=== PATIENT | female | born 1950 | race Caucasian/White ===

== ENCOUNTER 2018-03-11 21:27 | Inpatient (IN) | payer OTHER ==
[~2018-03-11] VITALS: Ht 165.1 cm; Wt 85.3 kg
[~2018-03-11 21:27] MED LIST: ACET325 PO; ELIQUIS5 MG PO; HARVONI 90-4001 EACH PO; INSULANPEN SC; NAPR250 PO; NICO21TP TD; Zithromax250 MG PO
[2018-03-11 21:40] LABS: BASOPHILS ABSOLUTE AUTO 0.12 K/mm3 (0.00-0.23); BASOPHILS PERCENT AUTO 1 % (0-2); EOSINOPHILS ABSOLUTE AUTO 0.31 K/mm3 (0.00-0.68); EOSINOPHILS PERCENT AUTO 2 % (0-6); Hematocrit 49.1 % (33.0-51.0); Hemoglobin 14.5 g/dL (11.5-16.0); IMMATURE GRAN ABSOLUTE AUTO 0.08 K/mm3 (0.00-0.10); IMMATURE GRAN PERCENT AUTO 0 % (0-1); LYMPHOCYTES ABSOLUTE AUTO 10.93 K/mm3 (0.84-5.20); LYMPHOCYTES PERCENT AUTO 57 % (21-46); MONOCYTES PERCENT AUTO 5 % (4-13); Mean Corpuscular HGB 31.7 pg (26.0-34.0); Mean Corpuscular HGB Conc 29.5 g/dL (31.5-36.5); Mean Corpuscular Volume 107 fL (80-100); Mean Platelet Volume 10.9 fL (9.1-12.4); NEUTROPHILS ABSOLUTE AUTO 6.76 K/mm3 (1.96-9.15); NEUTROPHILS PERCENT AUTO 36 % (41-73); Platelet Count 261 K/mm3 (150-400); RDW Coefficient Variation 12.5 % (11.7-14.2); RDW Standard Deviation 49.7 fL (35.1-46.3); Red Blood Cell Count 4.58 M/mm3 (3.80-5.20)
[2018-03-11 21:40] LABS: Calcium, Ionized (POC) 1.19 mmol/L (1.10-1.46); Chloride (POC) 103 mmol/L (98-108); Creatinine (POC) 0.8 mg/dL (0.6-1.0); Glucose (ISTAT POC) 434 mg/dL (70-99); Hemoglobin (POC) 16.3 g/dL (12.0-16.0); Potassium (POC) 3.1 mmol/L (3.5-5.5); Sodium (POC) 142 mmol/L (135-148); Total CO2 (POC) 18 mmol/L (21-32)
[2018-03-11 21:43] LABS: PCO2 Arterial 77.1 mmHg (35-45); PO2 Arterial 164 mmHg (80-100); pH Blood Arterial 6.94 (7.35-7.45)
[2018-03-11 21:57] LABS: International Normalized Ratio 0.97; Prothrombin Time Results 10.3 Sec (9.7-11.5)
[2018-03-11 22:00] LABS: Alanine Aminotransfer (ALT/SGP 24 U/L (12-78); Albumin, Blood 3.1 g/dL (3.4-5.0); Albumin/Globulin Ratio 0.7 (0.8-1.8); Alk Phos 130 U/L (50-136); Anion Gap 21 mmol/L (6-16); Aspartate Aminotrans (AST/SGOT 26 U/L (12-37); Bilirubin, Total 0.3 mg/dL (0.1-1.0); Blood Urea Nitrogen 20 mg/dL (8-24); Bun/Creatinine Ratio 23.8 (12.0-20.0); CO2, Blood 15 mmol/L (21-32); Calcium, Blood 8.9 mg/dL (8.5-10.1); Chloride, Blood 102 mmol/L (98-108); Creatinine, Blood 0.84 mg/dL (0.40-1.00); Ethanol (Alcohol), Blood, Med <3 mg/dL; Globulin, Blood 4.7 g/dL (2.2-4.0); Glomerular Filtration Rate >60 (60-); Glucose, Blood 421 mg/dL (70-99); Potassium, Blood 3.2 mmol/L (3.5-5.5); Sodium, Blood 138 mmol/L (136-145); Total Protein, Blood 7.8 g/dL (6.4-8.2); Troponin I 0.027 ng/mL (0.000-0.040)
[2018-03-11 22:22] LABS: Bilirubin, Urine Neg (Neg); Blood, Urine 2+ (Neg); Glucose Qualitative, Urine 4+ (Neg); Ketones, Urine Neg (Neg); Leukocyte Esterase, Urine Neg (Neg); Nitrite, Urine Neg (Neg); Protein, Urine 3+ (Neg); Specific Gravity, Urine 1.015 (1.003-1.022); Urobilinogen, Urine NORM (Normal)
[2018-03-11 22:25] LABS: Appearance, Urine Clear (Clear); Color, Urine Yellow (P-Yellow)
[2018-03-11 22:31] LABS: Red Blood Cells, Urine Rare /hpf (0-2); Squamous Epithelial Cells Not Seen /hpf (Few); White Blood Cells, Urine Not Seen /hpf (0-5)
[2018-03-11 22:32] LABS: Bacteria Not Seen /hpf
[2018-03-11 22:36] LABS: U Amphetamine Screen Not Detected; U Barbituate Screen Not Detected; U Benzodiazapine Screen Not Detected; U Buprenorphine Screen Not Detected; U Cannabinoids Screen Not Detected; U Cocaine Screen Not Detected; U Methadone Screen Not Detected; U Methamphetamine Screen Not Detected; U Opiates Screen Not Detected; U Oxycodone Screen Not Detected; U Phencyclidine Screen Not Detected; U Propoxyphene Screen Not Detected
[2018-03-12 00:03] LABS: PCO2 Arterial 50.2 mmHg (35-45); PO2 Arterial 74.5 mmHg (80-100); pH Blood Arterial 7.25 (7.35-7.45)
[2018-03-12 04:44] LABS: PCO2 Arterial 38.6 mmHg (35-45); PO2 Arterial 96.3 mmHg (80-100); pH Blood Arterial 7.31 (7.35-7.45)
--- NOTE | 2018-03-12 06:29 | NUR ---
SHIFT NOTE PT ARRIVED TO ICU 1 AT 2345 VIA ER BED, INTUBATED AND VENTED WITH ASSISTANCE OF RT. VENT SETTINGS INITIALLY AC 20, TV 450, PEEP 10, FIO2 80%. PT ABLE TO BE TITRATED DOWNT TO PEEP OF 7 AND FIO2 60% AT THIS TIME. PT HAS BEEN AWAKE, ALERT, ORIENTED, AND ABLE TO FOLLOW COMMANDS APPROPRIATELY. PT SEDATED WITH PROPOFOL AT 30 MCG/KG/MIN. PT COMPLAINED OF PAIN, PT MED WITH FENTANYL WITH GOOD EFFECT. PT THEN BECAME HYPOTENSIVE, DR LUJAN CALLED AND ORDERS RECIEVED FOR FLUID BOLUSES THROUGHOUT THE SHIFT. PT HAS RESPONDED WELL TO FLUIDS. AMIODARONE GTT INFUSING AT 0.5 MG/MIN, HEPARIN GTT INFUSING AT 13 UNIT/KG/HR PER PHARMACY, NS TKO, AND NS AT 200 ML/HR AT THIS TIME. OGT IN PLACE TO LIS WITH BROWN AND BILE COLORED OUTPUT NOTED. PT WITH COPIOUS CLEAR ORAL SECRETIONS. NELSON IN PLACE WITH YELLOW OUTPUT NOTED. SBW RESTRAINTS IN PLACE. PERIPHERAL IV'S X3 C/D/I. PT SPOUSE AND DAUGHTER AT BEDSIDE THROUHGOUT THE NIGHT AND UPDATED TO PLAN OF CARE. VITAL SIGNS STABLE AT THIS TIME WITH HR CONTROLED AND SBP 90-100'S. SEE ORDER HISTORY FOR MORE INFO. WILL CONTINUE TO MONITOR AND REPORT OFF TO ONCOMING RN.
[2018-03-12 06:49] LABS: BASOPHILS ABSOLUTE AUTO 0.03 K/mm3 (0.00-0.23); BASOPHILS PERCENT AUTO 0 % (0-2); EOSINOPHILS PERCENT AUTO 0 % (0-6); Hematocrit 41.1 % (33.0-51.0); Hemoglobin 12.9 g/dL (11.5-16.0); IMMATURE GRAN ABSOLUTE AUTO 0.03 K/mm3 (0.00-0.10); IMMATURE GRAN PERCENT AUTO 0 % (0-1); LYMPHOCYTES ABSOLUTE AUTO 0.63 K/mm3 (0.84-5.20); LYMPHOCYTES PERCENT AUTO 5 % (21-46); MONOCYTES ABSOLUTE AUTO 0.36 K/mm3 (0.16-1.47); MONOCYTES PERCENT AUTO 3 % (4-13); Mean Corpuscular HGB 31.4 pg (26.0-34.0); Mean Corpuscular HGB Conc 31.4 g/dL (31.5-36.5); Mean Platelet Volume 10.4 fL (9.1-12.4); NEUTROPHILS PERCENT AUTO 92 % (41-73); Platelet Count 200 K/mm3 (150-400); RDW Standard Deviation 48.3 fL (35.1-46.3); Red Blood Cell Count 4.11 M/mm3 (3.80-5.20); White Blood Cell Count 13.35 K/mm3 (4.00-11.30)
[2018-03-12 07:05] LABS: Anion Gap 11 mmol/L (6-16); Blood Urea Nitrogen 21 mg/dL (8-24); Bun/Creatinine Ratio 23.9 (12.0-20.0); CO2, Blood 20 mmol/L (21-32); Calcium, Blood 7.6 mg/dL (8.5-10.1); Chloride, Blood 112 mmol/L (98-108); Creatinine, Blood 0.88 mg/dL (0.40-1.00); Glomerular Filtration Rate >60 (60-); Glucose, Blood 351 mg/dL (70-99); Mean Corpuscular Volume 100 fL (80-100); Potassium, Blood 4.7 mmol/L (3.5-5.5); Sodium, Blood 143 mmol/L (136-145)
--- NOTE | 2018-03-12 08:50 | NUR ---
FEMALE PATIENT WITH ORAL ET TO VENT, TV400, PEEP 5, FIO2 SLOWLY DECREASED TO 30% WITH SPO2 AT 94%, AND AC20. SUCTIONED SEVERAL TIMES FROM ET, VERY CLEAR BUT TENACIOUS SECRETIONS. LUNG STILL VERY COARSE T/O. SMALL DARK BROWN DRAINAGE FROM OG AND CLAMPED. GOOD BOWEL SOUNDS AND PASSING LARGE AMTS OF FLATUS. LININ CHANGED AND PATIENT TURNED TO LEFT SIDE FOR ECHO. AMIODERONE DRIP DCED AFTER DR BOONE WENT IN TO EXAMINE PAT. NS AT 200ML/HOUR, PROPOFOL AT 30 MICS/KG/MIN. HEPARIN DRIP ALSO INCREASED TO 15 UNITS/ KGS/HOUR AND A BOLUS OF HEPARIN 3500 UNITS IVP. GOOD URINE O/P.
[2018-03-12 09:22] LABS: Troponin I 4.01 ng/mL (0.000-0.040)
[2018-03-12 10:52] LABS: Source, Urine Catheter
[2018-03-12 11:06] LABS: Bilirubin, Urine Neg (Neg); Blood, Urine 5+ (Neg); Glucose Qualitative, Urine 4+ (Neg); Ketones, Urine Neg (Neg); Leukocyte Esterase, Urine 2+ (Neg); Nitrite, Urine Neg (Neg); Protein, Urine 2+ (Neg); Urobilinogen, Urine NORM (Normal)
[2018-03-12 11:40] LABS: Appearance, Urine Turbid (Clear); Color, Urine Brown (P-Yellow)
[2018-03-12 11:43] LABS: Red Blood Cells, Urine TNTC /hpf (0-2)
[2018-03-12 11:44] LABS: Bacteria Few /hpf; Squamous Epithelial Cells Rare /hpf (Few)
--- NOTE | 2018-03-12 13:19 | NUR ---
Family memebers at bedside. They appeared subdued. Awaiting POC. Non-mandaen. Family responded well to affirmation of obvious love and encouragement. I will remain available.
[2018-03-12] MEDS ORDERED: NICO21TP (14:03)
[2018-03-12] MEDS ORDERED: INSULANPEN SC (14:03)
[2018-03-12] MEDS ORDERED: LOSA50 PO (14:05)
[2018-03-12] MEDS ORDERED: TRESIBA FL100 UNIT/1 SC (14:06)
[2018-03-12] MEDS ORDERED: LOVA40 (14:07)
[2018-03-12] MEDS ORDERED: Novolog100 UNIT/1 SC (14:10)
--- NOTE | 2018-03-12 18:03 | NUR ---
EXTREMELY RESTLESS THIS PM. MORE AWAKE AND TRYING TO SIT UP. MED WITH FENTANYL 50 MICS AND PROPOFOL INCREASED TO 40 MICS/KG/MIN. SUCTIONED NUMEROUS TIMES BUT LUNGS STILL ARE VERY WET AND RONCHOROUS. DR BOONE HERE AND TALKED WITH DAUGHTERS. URINE WAS BLOOD TINGED EARLIER BOT IS NOW DARK. DAUGHTERS STATE SHE PROFOUNDLY CLAUSTROFOBIC.
--- NOTE | 2018-03-12 19:15 | NUR ---
ASSUMING CARE OF PT AT THIS TIME. PT REPORT RECEIVED AT BEDSIDE WITH OFFGOING NURSE, CHERELLE HERNÁNDEZ. PT LAYING IN BED, INTUBATED, SEDATED UPON ENTERING THE ROOM. PT'S FAMILY AT BEDSIDE. VS STABLE - SEE VS FS. PT DOES NOT APPEAR TO BE IN DISTRESS AT THIS TIME. WILL REVIEW PLAN OF CARE.
--- NOTE | 2018-03-12 19:30 | NUR ---
ASSESSMENT PT AGITATED WITH PT CARE, OTHERWISE CALM, COOPERATIVE, RESPONDS TO PAINFUL STIMULI, OPENS EYES TO PRESSURE, LOCALIZES PAIN, DOES NOT FOLLOW COMMANDS, DOES NOT NOD HEAD Y/N TO QUESTIONS. PROPOFOL 40 MCG/KG/MIN - WILL TITRATE TO EFFECT. PLANNING TO DECREASE PROPOFOL AFTER BEDBATH. ANTONIO SENSATION. PT KATZ. SLIGHT WEAKNESS NOTED WITH MOVEMENT. NO S/SX OF PAIN/DISCOMFORT EXCEPT FACIAL GRIMACING AND RESTLESSNESS NOTED WITH PT CARE. LUNGS COARSE T/O, LOWER LOBES DIMINISHED. VENT SETTINGS: AC 12, TV 450, PEEP 5, FIO2 30%. RR 16. OXY SAT >90%. SUCTION VIA ETT: MODERATE AMOUNTS OF THICK RAMOS SECRETIONS. PER DOMINGUEZ, RT - NO SBT WILL BE COMPLETED IN THE AM D/T PLANTING MACHINE CREWMAN PLANNED FOR TOMORROW. AFEBRILE. NSR WITH BBB. HR 90'S. BP STABLE - SEE VS FS. STRONG PULSES. WARM, PINK, DRY SKIN. EDEMA NOTED. HYPO X4 QUADRANTS. ABD MILD DIST, SOFT, NONTENDER. OG IN PLACE. TF: VHP AT GOAL RATE 20 ML/HR AND 30 ML FLUSH Q4 HR. RESIDUAL 6 ML. NPO AT MIDNIGHT FOR SCHEDULED PLANTING MACHINE CREWMAN TOMORROW AM. F/C IN PLACE: CLOUDY, TEA TO BLOODY URINE. PER REPORT FROM BETTY VILLARREAL - DR BLUNT IS AWARE OF URINE. PIV X2. NS TKO X2 ON STABDY. HEPARIN DRIP 15 UNITS/KG/HR AT A DOSING WEIGHT 68 KG (20.4 ML/HR).
[2018-03-12 23:35] LABS: Vancomycin, Trough 12.3 ug/mL (5.0-10.0)
--- NOTE | 2018-03-13 | NUR ---
HEPARIN DRIP APTT AND VANCO TROUGH COMPLETED. INFORMED SIDNEY, PHARMACIST OF APTT AND VANCO TROUGH VALUES. SIDNEY PLANNING TO SEND VANCO TO ICU AND PLANNING TO CHANGE HEPARIN DRIP. WAITING FOR ORDERS AT THIS TIME.
[2018-03-13 03:25] LABS: BASOPHILS ABSOLUTE AUTO 0.05 K/mm3 (0.00-0.23); BASOPHILS PERCENT AUTO 1 % (0-2); EOSINOPHILS ABSOLUTE AUTO 0.02 K/mm3 (0.00-0.68); EOSINOPHILS PERCENT AUTO 0 % (0-6); IMMATURE GRAN ABSOLUTE AUTO 0.01 K/mm3 (0.00-0.10); IMMATURE GRAN PERCENT AUTO 0 % (0-1); LYMPHOCYTES ABSOLUTE AUTO 2.37 K/mm3 (0.84-5.20); LYMPHOCYTES PERCENT AUTO 23 % (21-46); MONOCYTES PERCENT AUTO 4 % (4-13); Mean Corpuscular HGB 31.1 pg (26.0-34.0); Mean Corpuscular HGB Conc 31.4 g/dL (31.5-36.5); Mean Corpuscular Volume 99 fL (80-100); Mean Platelet Volume 10.4 fL (9.1-12.4); NEUTROPHILS ABSOLUTE AUTO 7.49 K/mm3 (1.96-9.15); NEUTROPHILS PERCENT AUTO 72 % (41-73); Platelet Count 148 K/mm3 (150-400); RDW Coefficient Variation 13.2 % (11.7-14.2); Red Blood Cell Count 3.54 M/mm3 (3.80-5.20); White Blood Cell Count 10.34 K/mm3 (4.00-11.30)
[2018-03-13 03:40] LABS: International Normalized Ratio 1.05; Prothrombin Time Results 11.1 Sec (9.7-11.5)
[2018-03-13 03:50] LABS: Anion Gap 7 mmol/L (6-16); Blood Urea Nitrogen 15 mg/dL (8-24); CO2, Blood 24 mmol/L (21-32); Calcium, Blood 7.1 mg/dL (8.5-10.1); Chloride, Blood 113 mmol/L (98-108); Creatinine, Blood 0.84 mg/dL (0.40-1.00); Glomerular Filtration Rate >60 (60-); Glucose, Blood 219 mg/dL (70-99); Magnesium, Blood 2.2 mg/dL (1.6-2.4); Phosphorus, Blood 2.8 mg/dL (2.5-4.9); Potassium, Blood 3.5 mmol/L (3.5-5.5); Sodium, Blood 144 mmol/L (136-145)
[2018-03-13 04:01] LABS: Thyroid Stimulating Hormone 0.049 uIU/mL (0.360-4.800)
--- NOTE | 2018-03-13 04:54 | NUR ---
SHIFT ASSESSMENT NO ACUTE CHANGES NOTED T/O SHIFT. PT AGITATED WITH PT CARE AND DECREASED SEDATION, OTHERWISE CALM, COOPERATIVE, RESOPNDS TO VERBAL STIMULI, OCC OPENS EYES TO VERBAL STIMULI, LOCALIZES PAIN, FOLLOWS COMANDS, NODS HEAD Y/N TO SOME QUESTIONS. PROPOPOFOL CURRENTLY AT 30 MCG/KG/MIN - CONT TO TITRATE TO EFFECT. PT DENIES N/T. SENSATION INTACT. PT KATZ. SLIGHT WEAKNESS NOTED WITH MOVEMENT. OCC S/SX OF PAIN/DISCOMFORT AND PT OCC NODS HEAD Y/ TO PAIN. CONT TO ASSESS FOR PAIN/DISCOMFORT AND MEDICATED WITH PAIN MEDS PER PHYSICIAN'S ORDER / UTILIZED NONPHARM METHODS. LUNGS COARSE T/O, LOWER LOBES DIMINISHED. VENT SETTINGS: AC 12, TV 450, PEEP 5, FIO2 30%. RR 12 TO 20'S. OXY SAT >90%. SUCTION VIA ETT: SMALL TO MODERATE AMOUNTS OF THICK CLEAR TO RAMOS SECRETIONS. PER RT DOMINGUEZ - NO SBT COMPLETED THIS AM D/T SCHEDULED DRYER AND WASHER MECHANIC THIS AM. AFEBRILE. NSR WITH BBB. HR 80'S TO 90'S. BP STABLE - SEE VS FS. STRONG PULSES. WARM, PINK, DRY SKIN. EDEMA NOTED. HYPOACTIVE BT X4 QUADRANTS. ABD MILD DIST, SOFT, NONTENDER. OG IN PLACE. TF ON STANDBY AT 0000 FOR SCHEUDLED DRYER AND WASHER MECHANIC. OG CLAMPLED SINCE 0000. RESIDUAL WNL. F/C IN PLACE: CLOUDY, TEA TO BLOOD URINE. PIV X3. NS TKO X2 ON STANDBY. HEPARIN DRIP 14.5 UNITS/KG/HR AT A DOSING WEIGHT 68 KG (19.7 ML/HR). WILL CONT TO MONITOR PT AND WILL PROVIDE BEDSIDE REPORT TO ONCOMING NURSE THIS AM.
[2018-03-13 05:11] LABS: PCO2 Arterial 38.5 mmHg (35-45); PO2 Arterial 66.3 mmHg (80-100); pH Blood Arterial 7.39 (7.35-7.45)
--- NOTE | 2018-03-13 06:15 | NUR ---
DR. MELY BOONE AT BEDSIDE AT THIS TIME. UPDATED DR. BOONE REGARDING PT'S STATUS. DR. BOONE INSTRUCTED TO CONT TO HOLD TF AT THIS TIME. DR. BOONE ALSO INSTRUCTED TO PAGE HIM ONCE PT'S IS AT BEDSIDE TO OBTAIN CONSENT FOR SCHEDULED PUMP ERECTOR PROCEDURE THIS AM - WILL INFORM ONCOMING NURSE THIS AM.
--- NOTE | 2018-03-13 08:00 | NUR ---
FEMALE PATIENT WITH ORAL ET TO VENT, TV 450, PEEP 5, AC 12, AND FIO2 30%. LUNGS VERY COARSE T/O. SUCTIONING MED AMTS OF PALE YELLOW MUCOUS. DR BOONE HER AND WOULD LIKE TO BE NOTIFIED WHEN PAT'S IS HERE. NUMEROUS BRUISES ON SHALONDA LEGS. ALSO PATIENT REMAINS VERY EDEMATOUS. SHALONDA WRIST RESTRAINTS ON. URINE IN NELSON VERY OLD BLOOD TINGED.
--- NOTE | 2018-03-13 08:30 | NUR ---
PATIENT TAKEN ON BED TO HEART DETAIL SERGEANT WITH PORTABLE MONITOR AND PORTABLE VENT. SEE CATH NOTES. 1015 TAKEN BACK TO ROON VIA BED TO ICU 1. RIGHT TR BAND. [id number] TO VENT. PROPOFOL DECTEASED TO 30MICS/K/MIN. LASIX GIVEN. DR BOONE TALKED TO FAMILT ABOUT PROB TAKASUBO SYNDROME. REPOSITIONED TO RIGHT SIDE.
[2018-03-13 14:55] LABS: Anion Gap 7 mmol/L (6-16); Blood Urea Nitrogen 14 mg/dL (8-24); Bun/Creatinine Ratio 15.9 (12.0-20.0); CO2, Blood 25 mmol/L (21-32); Calcium, Blood 7.3 mg/dL (8.5-10.1); Chloride, Blood 113 mmol/L (98-108); Creatinine, Blood 0.88 mg/dL (0.40-1.00); Glomerular Filtration Rate >60 (60-); Glucose, Blood 204 mg/dL (70-99); Magnesium, Blood 2.2 mg/dL (1.6-2.4); Potassium, Blood 4.2 mmol/L (3.5-5.5); Sodium, Blood 145 mmol/L (136-145)
--- NOTE | 2018-03-13 15:00 | NUR ---
RIGHT TR BAND DEFLATED AND OPSITE APPLIED NO BLEEDING AREA SOFT, REMAINS ON ARMBOARD 24 HOURS MORE, EXCELLENT UA O/P IN RESPONSE TO LASIX
--- NOTE | 2018-03-13 23:09 | NUR ---
ASSUMED PT CARE AT 1915 PT INTUBATED AND SEDATED WITH PROPOFOL INFUSING AT 30MCG/KG. PT ABLE TO OPEN EYES TO VERBAL STIMULI, FOLLOW COMMANDS, AND SHAKE HEAD YES/NO TO QUESTIONS. APPEARS TO BE ALERT AND ORIENTED AND RECALLS EVENT. VENT SETTINGS: AC 12; TV 450; FIO2 30%; PEEP 5; WITH OXYGEN SATURATIONS >91%. PT REMAINS IN BILATERAL SOFT WRIST RESTRAINTS D/T PT MAKING PURPOSEFUL MOVEMENT TOWARD ETT. FAMILY AT BEDSIDE AND HAVE BEEN OBSERVED DISCONNECTING RESTRAINTS, WELL LOOSENING RESTRAINTS. FAMILY HAS BEEN ENCOURAGED TO CALL FOR ASSISTANCE DUE TO PT'S HIGH RISK OF SELF EXTUBATION. FAMILY CONTINUED TO TAKE PT OUT OF RESTRAINTS AND READJUST RESTRAINTS. PT HAD MINIMAL RESIDUALS OF 20CC; VITAL HIGH PROTEIN REMAINS AT GOAL OF 20MLS/HR WITH 30CC WATER FLUSHES Q4HRS RIGHT WRIST S/P TR BAND; OPSITE CDI WITH NO REDNESS, WARMTH, OOZING, OR HEMATOMA NOTED TO SITE. CAPILLARY REFILL <3SEC. NELSON CATH IS PATENT AND DRAINING TO GRAVITY; TEA COLORED AND BLOOD TINGED. PT RECEIVED LASIX AND ALDACTONE EARLIER TODAY WITH OVER A LITER DIURESED PER REPORTING OFF RN. TRACE AMOUNTS OF EDEMA NOTED. PT APPEARS COMFORTABLE AT THIS TIME. NO NONVERBAL S/SX OF PAIN AT THIS TIME.
[2018-03-14 03:29] LABS: BASOPHILS ABSOLUTE AUTO 0.05 K/mm3 (0.00-0.23); BASOPHILS PERCENT AUTO 1 % (0-2); EOSINOPHILS ABSOLUTE AUTO 0.08 K/mm3 (0.00-0.68); EOSINOPHILS PERCENT AUTO 1 % (0-6); Hematocrit 31.9 % (33.0-51.0); Hemoglobin 10.1 g/dL (11.5-16.0); IMMATURE GRAN ABSOLUTE AUTO 0.02 K/mm3 (0.00-0.10); IMMATURE GRAN PERCENT AUTO 0 % (0-1); LYMPHOCYTES ABSOLUTE AUTO 1.63 K/mm3 (0.84-5.20); LYMPHOCYTES PERCENT AUTO 20 % (21-46); MONOCYTES ABSOLUTE AUTO 0.41 K/mm3 (0.16-1.47); MONOCYTES PERCENT AUTO 5 % (4-13); Mean Corpuscular HGB 31.7 pg (26.0-34.0); Mean Corpuscular HGB Conc 31.7 g/dL (31.5-36.5); Mean Corpuscular Volume 100 fL (80-100); Mean Platelet Volume 10.4 fL (9.1-12.4); NEUTROPHILS ABSOLUTE AUTO 6.15 K/mm3 (1.96-9.15); NEUTROPHILS PERCENT AUTO 74 % (41-73); Platelet Count 164 K/mm3 (150-400); RDW Coefficient Variation 13.6 % (11.7-14.2); RDW Standard Deviation 49.8 fL (35.1-46.3); Red Blood Cell Count 3.19 M/mm3 (3.80-5.20); White Blood Cell Count 8.34 K/mm3 (4.00-11.30)
[2018-03-14 03:48] LABS: Alanine Aminotransfer (ALT/SGP 29 U/L (12-78); Albumin, Blood 2.4 g/dL (3.4-5.0); Albumin/Globulin Ratio 0.7 (0.8-1.8); Alk Phos 62 U/L (50-136); Anion Gap 7 mmol/L (6-16); Aspartate Aminotrans (AST/SGOT 30 U/L (12-37); Bilirubin, Total 0.5 mg/dL (0.1-1.0); Blood Urea Nitrogen 17 mg/dL (8-24); Bun/Creatinine Ratio 21.4 (12.0-20.0); CO2, Blood 26 mmol/L (21-32); Calcium, Blood 7.4 mg/dL (8.5-10.1); Chloride, Blood 112 mmol/L (98-108); Globulin, Blood 3.6 g/dL (2.2-4.0); Glomerular Filtration Rate >60 (60-); Glucose, Blood 212 mg/dL (70-99); Magnesium, Blood 2.3 mg/dL (1.6-2.4); Phosphorus, Blood 2.9 mg/dL (2.5-4.9); Potassium, Blood 3.6 mmol/L (3.5-5.5); Sodium, Blood 145 mmol/L (136-145)
[2018-03-14 04:51] LABS: PCO2 Arterial 37.1 mmHg (35-45); pH Blood Arterial 7.45 (7.35-7.45)
--- NOTE | 2018-03-14 05:39 | NUR ---
SBT/SEDATION VACATION PROPOFOL TURNED OFF AT 0330; PT ALERT, ABLE TO FOLLOW COMMANDS, AND ANSWER YES/NO QUESTIONS. SBT INITIATED AT 0400 WITH PRESSURE SUPPORT 7/5; FIO2 30%. PT ABLE TO PULL TV GREATER THAN 300 AND MAINTAIN RESP RATE LESS THAN 20, WHILE ALSO MAINTAINING SPO2 GREATER THAN 92%. PT PLEASANT AND COOPERATIVE WITH CARE T/O SBT. PT CONTINUED TO COUGH UP THICK, YELLOW SECRETIONS. PT PLACED BACK ON 35MCG OF PROPOFOL S/P SBT FOR COMFORT. PT CONTINUES TO PRODUCE COPIOUS AMOUNTS OF THICK, YELLOW SECRETIONS.
--- NOTE | 2018-03-14 06:03 | NUR ---
END OF SHIFT SUMMARY PT HAS REMAINED PLEASANT AND COOPERATIVE T/O SHIFT. CONTINUES TO BE ABLE TO FOLLOW COMMANDS AND ANSWER YES/NO QUESTIONS. SEE NOTES REGARDING SBT AND SEDATION VACATION. VENT SETTINGS: AC 12; TV 450; FIO2 30%; PEEP 5. PROPOFOL 35MCG/KG/MIN. HR 80-100'S; BBB NOTED. EKG DONE THIS AM. LUNG SOUNDS ARE CLEAR AT TIMES, BUT DIMINISHED IN THE BASES. HOWEVER, THEY ARE ALSO NOTED TO BE COARSE RHONCHI T/O WITH OCCASSIONAL BILATERAL CRACKLES TO BASES. PT CONTINUES TO PRODUCE COPIOUS AMOUNTS OF THICK, YELLOW SPUTUM. PT HAS A 1/2 PPD SMOKING HX. NELSON CATH REMAINS PATENT AND DRAINING TO GRAVITY; TEA COLORED AND BLOOD TINGED. TOTAL OUTPUT THIS SHIFT WAS 500CC. PT HAS BEEN TURNED EVERY TWO HOURS FOR COMFORT. LAST TEMP PT WAS DIAPHORETIC ON FOREHEAD; THEREFORE, AXILLARY TEMP WAS TAKEN WITH A READING OF 100.8. HOWEVER, ORAL TEMPERATURE TAKEN WITH AN ORAL TEMP OF 99.3. TOOK TEMPERATURE AGAIN ABOUT AN HOUR LATER AND TEMPORAL TEMP WAS 98.0; AND PT WAS NOT DIAPHORETIC AT THIS TIME. PT APPEARS COMFORTABLE AT THIS TIME AND DENIES ANY PAIN.
--- NOTE | 2018-03-14 06:38 | NUR ---
DR. BOONE AT BEDSIDE. EKG RESULTS PROVIDED. NO NEW ORDERS. INFORMED OF PT PASSING SBT TRIAL THIS AM. ALSO INFORMED OF URINE OUTPUT, COLOR, AND TOTAL I/O'S.
--- NOTE | 2018-03-14 07:15 | NUR ---
RECEIVED REPORT FROM BETTY DIETZ, AND ASSUMED CARE OF PT.
--- NOTE | 2018-03-14 07:30 | NUR ---
NURSING SUMMARY SLEEPING, WAKES EASILY TO VOICE, ORIENTED, FOLLOWS COMMANDS. VENTILATOR SETTINGS 450-5-30-12, RR 18-28, SATS 92-95%, LUNGS CLEAR, DIMINISHED LOWER LOBES. SR ON MONITOR WITH LBBB, HR 80'S. RIGHT RADIAL PUCTURE SITE WITH TRANSPARENT DRESSING, CDI, NO S/S OF BLEEDING OR HEMATOMA, ARMBOARD IN PLACE. BILATERAL SOFT WRIST RESTRAINTS, REMOVED TO PERFORM ROM, GOOD CAP REFILL, WARM TO THE TOUCH. PROPOFOL INFUSING AT 35 MCG/KG/MIN = 14.3 ML/HR. PT PASSED SPONTANEOUS BREATHING TRIAL THIS MORNING PER JOSE DIETZ RN. OMAR WITH DARK/TEA COLORED URINE. ET TUBE IN PLACE 7-23 AND ORAGASTRIC TUBE FEEDING VITAL PROTEIN AT 20 ML/HR WHICH IS GOAL RATE, 30 CC H20 FLUSHES EVERY 4 HOURS. RIGHT AC IV INFUSING NS AT TKO AND RIGHT FOREARM INFUSING PROPOFOL. AT BEDSIDE. PROVIDED EDUCATION REGARDING RESULTS OF TRIAL AND POTENTIAL PLAN TO EXTUBATE TODAY, AWAITING VISIT FROM [employer]IME PLANT OPERATOR.
--- NOTE | 2018-03-14 08:30 | NUR ---
DR. BLUNT ADVISED THAT WE WILL PLAN TO EXTUBATE TODAY, WOULD LIKE PT TO HAVE HER MORNING MEDICATIONS BEFORE EXTUBATION, REMAIN NPO FOR AT LEAST 2 HOURS, AND RECEIVE TEACHING TO USE A FLUTTER VALVE. AWAITING EXTUBATION TIME FROM DR. BLUNT.
--- NOTE | 2018-03-14 09:50 | NUR ---
DR. MARES AT BEDSIDE FOR EVALUATION. PT'S AND DAUGHTER AT BEDSIDE.
--- NOTE | 2018-03-14 10:00 | NUR ---
NURSING SUMMARY PATIENT REMAINS INTUBATED WITH SETTINGS OF 450-5-30-12. DECREASED PROPOFOL TO 3 MCG/KG/MIN. REPOSITIONED PT TO LEFT SIDE, NOTED COARSE LUNG SOUNDS WITH RHONCHI, SUCTIONED FOR MODERATE AMOUNTS OF THICK/WHITE SPUTUM. PT CONTINUES TO COUGH AND ABLE TO BRING UP SMALL AMOUNTS OF THICK/WHITE SPUTUM.
--- NOTE | 2018-03-14 10:20 | NUR ---
NURSING SUMMARY RT AT BEDSIDE, SUCTIONED FOR MODERATE AMOUNT OF THICK/WHITE SPUTUM. LUNGS REMAIN COARSE WITH RHONCHI. SATS 95% AND RR 22 ON VENTILATOR SETTINGS 450-5-30-12.
--- NOTE | 2018-03-14 11:34 | NUR ---
WEANING PROPOFOL DOWN IN PREPARATION FOR EXTUBATION PER DISCUSSION WITH DR. BLUNT. PROPOFOL CURRENTLY INFUSING AT 20 MCG/KG/MIN.
[2018-03-14 12:43] LABS: Vancomycin, Trough 14.9 ug/mL (5.0-10.0)
--- NOTE | 2018-03-14 13:45 | NUR ---
NURSING SUMMARY EXTUBATED PT AT 1345, TOLERATED WELL. PLACED ON 5L O2 NC, LUNGS COARSE THROUGHOUT WITH RHONCHI, COUGHING FREQUENTLY, SUCTIONING SELF. STOPPED TUBE FEEDINGS, INSTRUCTED RE: REMAINING NPO X 2 HRS AND THEN TRY SIPS OF WATER. IF TOLERATES SIPS OF WATER, INCREASE DIET TO CLEAR LIQUIDS. INSTRUCTED RE: EXPECTATION TO HAVE A HOARSE THROAT AND THAT IT IS OKAY TO TRY TO TALK WITH FAMILY TOLERATED. INSTRUCTED TO USE THE CALL LIGHT TO CALL FOR ASSISTANCE. REPOSITIONED SELF IN BED TO SUPINE/HIGH FOWLERS AND LOWERED HEAD AFTER EXTUBATION. FAMILY AT BEDSIDE.
--- NOTE | 2018-03-14 17:32 | NUR ---
PATIENT TOLERATED SIPS OF WARM TEA. ADVANCED DIET TO CLEAR LIQUIDS. PROVIDED PT WITH A FLUTTER VALVE AND EDUCATION RE: HOW TO USE. INSTRUCTED TO USE EVERY HOUR WHILE AWAKE. VERBALIZED AND DEMONSTRATED GOOD UNDERSTANDING.
--- NOTE | 2018-03-14 19:30 | NUR ---
ASSUMED CARE REPORT RECIEVED. PT IS SITTING UP IN BED AWAKE, ALERT, AND ORIENTED, WATCHING TV. PT WITH BOTH DAUGHTERS AT BEDSIDE. PT DENIES PAIN, DISCOMFORT, OR SOB AT THIS TIME. PT ON 3L O2 NC, VITAL SIGNS STABLE. PT TOLERATING SIPS OF WATER/TEA WELL. IV WITH NS TKO. NELSON IN PLACE WITH DARK YELLOW OUTPUT NOTED. WILL CONTINUE TO MONITOR.
--- NOTE | 2018-03-14 22:45 | NUR ---
LEAKING NELSON PT FOUND TO BE WET WITH URINE ON BEDDING/GOWN. NELSON CHECKED, NO SIGNS OF LEAKING FROM TUBING. BALOON DEFLATED, THEN REINFLATED WITH 10 ML SALINE. AFTER SOME TIME, NO URINE OUTPUT NOTED IN BAG OR TUBING, PT STATES FEELING OF NEEDING TO VOID. PT VOIDED AND LEAKED AROUND NELSON AT INSERTION SITE WITH BALOON INTACT. NELSON DC'D DUE TO LEAKING. PT VOIDING WELL POST NELSON REMOVAL.
[2018-03-15 02:45] LABS: PCO2 Arterial 50.7 mmHg (35-45); PO2 Arterial 220 mmHg (80-100); pH Blood Arterial 7.35 (7.35-7.45)
--- NOTE | 2018-03-15 03:03 | NUR ---
ANXIOUS/SHORTNESS OF BREATH PT CALLED THIS RN TO ROOM STATING INCREASING SHORTNESS OF BREATH. PT APPEARS TO BE ANXIOUS AT THIS TIME. SPO2 80%. O2 VIA NC INCREASED, RT CALLED TO AND PLACED PT ON BIPAP. ABG DRAWN. DR BLUNT NOTIFIED AND ORDERS RECIEVED FOR 0.5 MG ATIVAN AND 20 MG LASIX NOW. NEW NELSON INSERTED, RED/PURPLE URINE OUTPUT RECIEVED WITH SOME CLOTS. BIPAP CURRENTLY 02/09, FIO2 35%. PT RESTING CALMLY AT THIS TIME, SPO2 >90%. WILL CONTINUE TO MONITOR.
[2018-03-15 03:42] LABS: BASOPHILS ABSOLUTE AUTO 0.06 K/mm3 (0.00-0.23); BASOPHILS PERCENT AUTO 1 % (0-2); EOSINOPHILS ABSOLUTE AUTO 0.14 K/mm3 (0.00-0.68); EOSINOPHILS PERCENT AUTO 2 % (0-6); Hemoglobin 11.1 g/dL (11.5-16.0); IMMATURE GRAN ABSOLUTE AUTO 0.02 K/mm3 (0.00-0.10); IMMATURE GRAN PERCENT AUTO 0 % (0-1); LYMPHOCYTES ABSOLUTE AUTO 1.39 K/mm3 (0.84-5.20); LYMPHOCYTES PERCENT AUTO 19 % (21-46); MONOCYTES ABSOLUTE AUTO 0.35 K/mm3 (0.16-1.47); MONOCYTES PERCENT AUTO 5 % (4-13); Mean Corpuscular HGB 31.1 pg (26.0-34.0); Mean Corpuscular HGB Conc 31.7 g/dL (31.5-36.5); Mean Corpuscular Volume 98 fL (80-100); Mean Platelet Volume 10.5 fL (9.1-12.4); NEUTROPHILS ABSOLUTE AUTO 5.54 K/mm3 (1.96-9.15); NEUTROPHILS PERCENT AUTO 74 % (41-73); Platelet Count 176 K/mm3 (150-400); RDW Coefficient Variation 13.3 % (11.7-14.2); RDW Standard Deviation 47.8 fL (35.1-46.3); Red Blood Cell Count 3.57 M/mm3 (3.80-5.20)
[2018-03-15 04:04] LABS: Anion Gap 6 mmol/L (6-16); Blood Urea Nitrogen 15 mg/dL (8-24); CO2, Blood 28 mmol/L (21-32); Chloride, Blood 112 mmol/L (98-108); Creatinine, Blood 0.75 mg/dL (0.40-1.00); Glomerular Filtration Rate >60 (60-); Glucose, Blood 156 mg/dL (70-99); Magnesium, Blood 2.2 mg/dL (1.6-2.4); Phosphorus, Blood 3.3 mg/dL (2.5-4.9); Potassium, Blood 3.3 mmol/L (3.5-5.5); Sodium, Blood 146 mmol/L (136-145)
[2018-03-15 05:06] LABS: PCO2 Arterial 43.7 mmHg (35-45); PO2 Arterial 75.8 mmHg (80-100); pH Blood Arterial 7.43 (7.35-7.45)
--- NOTE | 2018-03-15 05:59 | NUR ---
SHIFT SUMMARY PT RESTING QUIETLY WITH BIPAP ON AT THIS TIME. BIPAP SETTINGS 10/7, FIO2 35%. PT HAS PUT OUT 900 ML OF URINE THAT WAS INITIALLY BLOODY/MAROON, THEN CLEAR, AND NOW RETURNED TO BLOODY AFTER ADMINISTRATION OF LASIX. LS HAVE CLEARED UP GREATLY AND PT REPORTS MUCH EASIER BREATHING. PT AGREED TO CONTINUE WEARING BIPAP AT THIS TIME. VITAL SIGNS STABLE. NS INFUSING TKO. SEE PREVIOUS SHIFT NOTES FOR MORE INFO. WILL CONTINUE TO MONITOR AND REPORT OFF TO ONCOMING RN.
--- NOTE | 2018-03-15 06:52 | NUR ---
DR MELY BOONE IN TO SEE PT THIS AM. NEW ORDERS TO BE PUT IN.
--- NOTE | 2018-03-15 07:15 | NUR ---
RECEIVED REPORT FROM BETTY ALLEN, AND ASSUMED CARE OF PT.
--- NOTE | 2018-03-15 09:15 | NUR ---
DR. MARES AND DR. BLUNT AT BEDSIDE FOR EVALUATIONS. NEW ORDERS PROVIDED.
--- NOTE | 2018-03-15 09:45 | NUR ---
PT INCONTINENT OF STOOL WITH COUGHING, CLEANED PT. ASSISTED PT OUT OF BED TO THE BATHROOM FOR MORE BM. ASSISTED WITH CLEANING AND DISCONTINUED THE NELSON CATHETER. ASSISTED PT TO TRANSFER TO THE BEDSIDE CHAIR TO HAVE BREAKFAST. ENCOURAGED INCREASED PO INTAKE AND USE OF THE FLUTTER VALVE, PROVIDED A NEW FLUTTER VALVE. INSTRUCTED PT TO USE THE CALL LIGHT AND CALL FOR ASSISTANCE WHEN SHE NEEDS TO GET UP TO USE THE BATHROOM.
--- NOTE | 2018-03-15 11:33 | NUR ---
Initial palliative care consult: Guille is a 67 year old with a history of DVT, DM, Hepatitis C, remote history of ETOH (not currently drinking). She was shopping and had an acute onset of SOB which deteriorated and she was intubated prior to hospital arrival. She lives with her . Two daughters are currently at bedside. She had a cardiac cath on 03/13 which did not show any occlusions. Echo reveals an EF of 33%. This is a new diagnosis for pt. She was sucessfully extubated on 03/14. She required some bipap support and diuretics for an episode of increased SOB overnight last night. She is currenlty up in the bedside chair on 5l nc O2. She reports her breathing feels "much better." She reports that she was "fired by Dr. Escobar" because she didn't like to go in for her appointments and she reports she wasn't good about following up on recommendations. She reports "I was healthy until I starting going to see doctors." She reports her employement at [employer] required her to have yearly health exams. She had to use the BSC during our conversation. Will return to offer education on CHF and talk with her re: diuretics.
[2018-03-15 13:33] LABS: Anion Gap 9 mmol/L (6-16); Blood Urea Nitrogen 14 mg/dL (8-24); Bun/Creatinine Ratio 17.9 (12.0-20.0); CO2, Blood 29 mmol/L (21-32); Calcium, Blood 8.1 mg/dL (8.5-10.1); Chloride, Blood 106 mmol/L (98-108); Creatinine, Blood 0.78 mg/dL (0.40-1.00); Glomerular Filtration Rate >60 (60-); Glucose, Blood 244 mg/dL (70-99); Potassium, Blood 3.3 mmol/L (3.5-5.5); Sodium, Blood 144 mmol/L (136-145)
--- NOTE | 2018-03-15 14:56 | NUR ---
Gave pt CHF pamphlet. Pt's nurse reports pt is "lectured out" at this time. Gave pt and dtr pamphlet and asked them to review it when they feel ready to do so. PC to follow up with pt after she reviews the CHF teaching pamphlet to answer any questions she may have. Held off on discussing AD/POLST at this time per nursing request.
--- NOTE | 2018-03-15 15:03 | NUR ---
NURSING SUMMARY ALERT AND ORIENTED X 4. SR ON THE MONITOR, HR 80'S, WITH LBBB. HAD A 15-BEAT RUN OF VTACH, ASYMPTOMATIC, VSS. LUNGS CLEAR, WEANED OXYGEN DOWN TO 2L, SATS 96% - 99%, USING FLUTTER VALVE FREQUENTLY. COUGHING, SMALL AMOUNT SPUTUM. USED BIPAP THIS MORNING FOR ABOUT 4 HOURS, TAKEN OFF AROUND 0700. NELSON DISCONTINUED, FREQUENT VOIDING PER BATHROOM, CALLS FOR ASSISTANCE APPROPRIATELY. FREQUENT BM'S PER BATHROOM, TOLERATING FULL LIQUID DIET. TAKES PILLS CRUSHED IN APPLE SAUCE. PCU STATUS WITH TELEMETRY. DAUGHTER AT BEDSIDE, HELPFUL.
--- NOTE | 2018-03-15 18:45 | NUR ---
DR. BLUNT TO REVIEW DR. BOONE'S NOTES RE: STARTING A BETA JHONNY AND WILL CALL HIM.
--- NOTE | 2018-03-15 20:08 | NUR ---
TRANSFER TO PCU REPORT CALLED TO BETTY SALOMON IN PCU. PT TAKEN TO PCU 13 VIA BED WITH ALL BELONGINGS/MEDS. PT DAUGHTER FOLLOWED TO PCU.
[2018-03-16 04:15] LABS: BASOPHILS ABSOLUTE AUTO 0.06 K/mm3 (0.00-0.23); BASOPHILS PERCENT AUTO 1 % (0-2); EOSINOPHILS ABSOLUTE AUTO 0.26 K/mm3 (0.00-0.68); EOSINOPHILS PERCENT AUTO 3 % (0-6); Hematocrit 35.8 % (33.0-51.0); Hemoglobin 11.5 g/dL (11.5-16.0); IMMATURE GRAN ABSOLUTE AUTO 0.02 K/mm3 (0.00-0.10); IMMATURE GRAN PERCENT AUTO 0 % (0-1); LYMPHOCYTES ABSOLUTE AUTO 1.76 K/mm3 (0.84-5.20); LYMPHOCYTES PERCENT AUTO 22 % (21-46); MONOCYTES ABSOLUTE AUTO 0.48 K/mm3 (0.16-1.47); MONOCYTES PERCENT AUTO 6 % (4-13); Mean Corpuscular HGB 31.3 pg (26.0-34.0); Mean Corpuscular HGB Conc 32.1 g/dL (31.5-36.5); Mean Corpuscular Volume 97 fL (80-100); Mean Platelet Volume 9.9 fL (9.1-12.4); NEUTROPHILS ABSOLUTE AUTO 5.36 K/mm3 (1.96-9.15); NEUTROPHILS PERCENT AUTO 67 % (41-73); Platelet Count 184 K/mm3 (150-400); RDW Coefficient Variation 13.2 % (11.7-14.2); RDW Standard Deviation 46.7 fL (35.1-46.3); Red Blood Cell Count 3.68 M/mm3 (3.80-5.20); White Blood Cell Count 7.94 K/mm3 (4.00-11.30)
[2018-03-16 04:16] LABS: Base Excess Venous 7.2 mmol/L; Bicarbonate Venous 29.9 mmol/L (24.0-30.0); PCO2 Venous 42.3 mmHg (38-42); PO2 Venous 40.8 mmHg (38-42); pH Blood Venous 7.47 (7.34-7.37)
[2018-03-16 04:33] LABS: Anion Gap 7 mmol/L (6-16); Blood Urea Nitrogen 14 mg/dL (8-24); CO2, Blood 30 mmol/L (21-32); Calcium, Blood 8.3 mg/dL (8.5-10.1); Chloride, Blood 109 mmol/L (98-108); Creatinine, Blood 0.74 mg/dL (0.40-1.00); Glomerular Filtration Rate >60 (60-); Glucose, Blood 149 mg/dL (70-99); Potassium, Blood 3.6 mmol/L (3.5-5.5); Sodium, Blood 146 mmol/L (136-145)
--- NOTE | 2018-03-16 05:42 | NUR ---
ASSUMED CARE OF PATIENT AT APPROXIMATELY 2000 FROM ALEJANDRO [employer] UNEMPLOYMENT SPECIALIST. PATIENT ARRIVED TO UNIT VIA STRETCHER; TRANSFER VIA SLIDE SHEET AND 4X STAFF. PATIENT ALERT AND ORIENTED X4; ONE ASSIST OUT OF BED. SR W/ BBB ON TELE; OXYGEN SATURATION ABOVE 90% ON 2LPM VIA NC OR ON BIPAP / 30%. PATIENT DENIES PAIN BUT REPORTS RIGHT ARM LOOKS LIKE AN ALIEN ARM; NONPITTING EDEMA; PATIENT REPORT WARM BLANKET IMPROVED ARM. PATIENT DENIES DIZZINESS AND NAUSEA. ONE ASSIST OUT OF BED WITH FWW TO BATHROOM; RED TINTED URINE AND LOOSE BM. PIV S/L. PATIENT'S DAUTHER IN ROOM FOR MOST OF SHIFT. PATIENT CURRENTLY RESTING IN BED; CALL LIGHT IN REACH; BED IN LOWEST POSISTION; BED ALARM ON; WILL CONTINUE TO MONITOR AND ASSESS UNTIL END OF SHIFT.
[2018-03-16] MEDS ORDERED: ALBU90OI INH (11:06)
[2018-03-16] MEDS ORDERED: AUGMENTIN PO (11:08)
[2018-03-16] MEDS ORDERED: ACIDOPHILUS1 EAC1 PO (11:09)
[2018-03-16] MEDS ORDERED: PANT40 PO (11:10)
[2018-03-16] MEDS ORDERED: SPIR25 PO (11:10)
[2018-03-16] MEDS ORDERED: METO25ER PO (11:10)
[2018-03-16] MEDS ORDERED: TORSEMIDE PO (11:11)
== END 2018-03-16 15:25 | disposition home or self-care (01) | DRG 871 ==
LOC: ER 21:27 → PCU 23:13 → ICUE 23:13 → ICUW 23:13 → EDBD 23:13 → ICUE 23:45 → PCU 03-15 20:10
PROVIDERS: Emergency Medicine; Internal Medicine Cardiovascular Disease; Internal Medicine Critical Care Medicine; ADMIT Hospitalist
PROC: 5A1945Z Respiratory Ventilation, 24-96 Consecutive Hours (ICD-10-PCS; 2018-03-11)
PROC: B2151ZZ Fluoroscopy of Left Heart using Low Osmolar Contrast (ICD-10-PCS; principal; 2018-03-13)
PROC: 4A023N7 Measurement of Cardiac Sampling and Pressure, Left Heart, Percutaneous Approach (ICD-10-PCS; 2018-03-13)
PROC: 5A09357 Assistance with Respiratory Ventilation, Less than 24 Consecutive Hours, Continuous Positive Airway Pressure (ICD-10-PCS; 2018-03-15)
DX: A41.9 Sepsis, unspecified organism (principal); J69.0 Pneumonitis due to inhalation of food and vomit; J96.02 Acute respiratory failure with hypercapnia; J96.01 Acute respiratory failure with hypoxia; I50.43 Acute on chronic combined systolic (congestive) and diastolic (congestive) heart failure; E87.2 Acidosis; I42.0 Dilated cardiomyopathy; N39.0 Urinary tract infection, site not specified; R65.20 Severe sepsis without septic shock; E11.65 Type 2 diabetes mellitus with hyperglycemia; I11.0 Hypertensive heart disease with heart failure; R00.0 Tachycardia, unspecified; I44.7 Left bundle-branch block, unspecified; D72.829 Elevated white blood cell count, unspecified; I34.0 Nonrheumatic mitral (valve) insufficiency; R31.9 Hematuria, unspecified; D64.9 Anemia, unspecified; E87.6 Hypokalemia; N83.202 Unspecified ovarian cyst, left side; R77.8 Other specified abnormalities of plasma proteins; F17.200 Nicotine dependence, unspecified, uncomplicated; F10.20 Alcohol dependence, uncomplicated; Z79.4 Long term (current) use of insulin; Z86.718 Personal history of other venous thrombosis and embolism
CPT/HCPCS: 31720; 36415; 36430; 36600; 51702; 70450; 71045; 71046; 71260; 76770; 80047; 80048; 80053; 80202; 81001; 82010; 82550; 82803; 82947; 83605; 83735; 83880; 84100; 84145; 84443; 84484; 85014; 85025; 85610; 85730; 86304; 86850; 86900; 86901; 87040; 87070; 87086; 87205; 90686; 93005; 93010; 93306; 93458; 94002; 94003; 94640; 94660; 94761; 94762; 96365; 96375; 99152; 99153; 99291-25; 99292; C1769; C1894; C9113; G0008; G0480; J0282; J1644; J1650; J1815; J1940; J2060; J2543; J3010; J3370; J3475; J3480; J7030; J7050; J7060; Q9967

== ENCOUNTER 2019-07-24 22:15 | Inpatient (IN) | payer OTHER ==
[~2019-07-24] VITALS: Ht 162.6 cm; Wt 85.1 kg
[~2019-07-24 22:15] MED LIST changes: +ACIDOPHILUS1 EAC1 PO; +AUGMENTIN PO; -INSULANPEN SC; +NICO21TP; +SPIR25 PO; +TORSEMIDE PO; +TRESIBA FL100 UNIT/1 SC
[2019-07-24 22:33] LABS: PCO2 Arterial 77.7 mmHg (35-45); PO2 Arterial 80.5 mmHg (80-100)
[2019-07-24 22:41] LABS: BASOPHILS ABSOLUTE AUTO 0.11 K/mm3 (0.00-0.23); BASOPHILS PERCENT AUTO 1 % (0-2); EOSINOPHILS ABSOLUTE AUTO 0.22 K/mm3 (0.00-0.68); EOSINOPHILS PERCENT AUTO 2 % (0-6); Hemoglobin 14.1 g/dL (11.5-16.0); Mean Corpuscular HGB 30.8 pg (26.0-34.0); Mean Corpuscular Volume 103 fL (80-100); Mean Platelet Volume 10.7 fL (9.1-12.4); NRBC ABSOLUTE 0.02 K/mm3 (0.00-0.02); NRBC Auto 0.1 /100 WBC (0.0-0.2); Platelet Count 268 K/mm3 (150-400); RDW Coefficient Variation 12.7 % (11.7-14.2); RDW Standard Deviation 48.1 fL (35.1-46.3); Red Blood Cell Count 4.58 M/mm3 (3.80-5.20); White Blood Cell Count 14.54 K/mm3 (4.00-11.30)
[2019-07-24 22:43] LABS: IMMATURE GRAN ABSOLUTE AUTO 0.36 K/mm3 (0.00-0.10); IMMATURE GRAN PERCENT AUTO 3 % (0-1); LYMPHOCYTES ABSOLUTE AUTO 8.46 K/mm3 (0.84-5.20); LYMPHOCYTES PERCENT AUTO 58 % (21-46); MONOCYTES ABSOLUTE AUTO 0.64 K/mm3 (0.16-1.47); MONOCYTES PERCENT AUTO 4 % (4-13); NEUTROPHILS ABSOLUTE AUTO 4.75 K/mm3 (1.96-9.15); NEUTROPHILS PERCENT AUTO 33 % (41-73)
[2019-07-24 23:03] LABS: Alanine Aminotransfer (ALT/SGP 32 U/L (12-78); Albumin, Blood 2.8 g/dL (3.4-5.0); Albumin/Globulin Ratio 0.6 (0.8-1.8); Alk Phos 142 U/L (50-136); Anion Gap 16 mmol/L (6-16); Aspartate Aminotrans (AST/SGOT 37 U/L (12-37); Bilirubin, Total 0.4 mg/dL (0.1-1.0); Blood Urea Nitrogen 17 mg/dL (8-24); Bun/Creatinine Ratio 17.7 (12.0-20.0); CO2, Blood 19 mmol/L (21-32); Calcium, Blood 8.4 mg/dL (8.5-10.1); Chloride, Blood 105 mmol/L (98-108); Creatinine, Blood 0.96 mg/dL (0.40-1.00); Globulin, Blood 4.5 g/dL (2.2-4.0); Glomerular Filtration Rate >60 (60-); Glucose, Blood 429 mg/dL (70-99); Potassium, Blood 3.1 mmol/L (3.5-5.5); Sodium, Blood 140 mmol/L (136-145); Total Protein, Blood 7.3 g/dL (6.4-8.2); Troponin I <0.015 ng/mL (0.000-0.040)
[2019-07-24] MEDS ORDERED: INSULANPEN SC (23:11)
[2019-07-24] MEDS ORDERED: NOVOLOG FL100 UNIT/1 SC (23:12)
[2019-07-24] MEDS ORDERED: LOSARTAN POTAS100 M1 PO (23:12)
[2019-07-24] MEDS ORDERED: METO100ER PO (23:13)
[2019-07-24] MEDS ORDERED: PANT40 PO (23:14)
[2019-07-24] MEDS ORDERED: ALBU90OI INH (23:14)
[2019-07-24] MEDS ORDERED: PRAV20 PO (23:15)
[2019-07-24] MEDS ORDERED: AIRDUO RESPICL1 EAC3 INH (23:16)
[2019-07-24 23:37] LABS: Magnesium, Blood 2.7 mg/dL (1.6-2.4)
[2019-07-25 01:08] LABS: PO2 Arterial 73.2 mmHg (80-100)
[2019-07-25 01:09] LABS: pH Blood Arterial 7.25 (7.35-7.45)
[2019-07-25 01:43] LABS: D-Dimer, Quantitative >35.20 mg/L FEU (0.00-0.52); Fibrinogen 411 mg/dL (170-430)
[2019-07-25 04:46] LABS: BASOPHILS ABSOLUTE AUTO 0.06 K/mm3 (0.00-0.23); BASOPHILS PERCENT AUTO 0 % (0-2); EOSINOPHILS ABSOLUTE AUTO 0.01 K/mm3 (0.00-0.68); EOSINOPHILS PERCENT AUTO 0 % (0-6); Hematocrit 42.1 % (33.0-51.0); IMMATURE GRAN PERCENT AUTO 1 % (0-1); LYMPHOCYTES ABSOLUTE AUTO 0.88 K/mm3 (0.84-5.20); LYMPHOCYTES PERCENT AUTO 5 % (21-46); MONOCYTES ABSOLUTE AUTO 0.81 K/mm3 (0.16-1.47); MONOCYTES PERCENT AUTO 5 % (4-13); Mean Corpuscular HGB 30.4 pg (26.0-34.0); Mean Corpuscular HGB Conc 30.9 g/dL (31.5-36.5); Mean Platelet Volume 10.7 fL (9.1-12.4); NEUTROPHILS ABSOLUTE AUTO 15.25 K/mm3 (1.96-9.15); NEUTROPHILS PERCENT AUTO 89 % (41-73); Platelet Count 273 K/mm3 (150-400); RDW Coefficient Variation 12.9 % (11.7-14.2); RDW Standard Deviation 46.7 fL (35.1-46.3); Red Blood Cell Count 4.28 M/mm3 (3.80-5.20); White Blood Cell Count 17.11 K/mm3 (4.00-11.30)
[2019-07-25 04:48] LABS: PCO2 Arterial 43.1 mmHg (35-45); PO2 Arterial 118 mmHg (80-100); pH Blood Arterial 7.16 (7.35-7.45)
[2019-07-25 04:49] LABS: Mean Corpuscular Volume 98 fL (80-100)
[2019-07-25 05:01] LABS: International Normalized Ratio 1.07; Prothrombin Time Results 11.4 Sec (9.7-11.5)
[2019-07-25 05:09] LABS: Alanine Aminotransfer (ALT/SGP 48 U/L (12-78); Albumin, Blood 2.5 g/dL (3.4-5.0); Albumin/Globulin Ratio 0.6 (0.8-1.8); Alk Phos 100 U/L (50-136); Anion Gap 14 mmol/L (6-16); Aspartate Aminotrans (AST/SGOT 81 U/L (12-37); Bilirubin, Total 0.5 mg/dL (0.1-1.0); Blood Urea Nitrogen 19 mg/dL (8-24); Bun/Creatinine Ratio 19.9 (12.0-20.0); CO2, Blood 17 mmol/L (21-32); Calcium, Blood 6.7 mg/dL (8.5-10.1); Chloride, Blood 113 mmol/L (98-108); Creatinine, Blood 0.95 mg/dL (0.40-1.00); Globulin, Blood 3.9 g/dL (2.2-4.0); Glomerular Filtration Rate >60 (60-); Glucose, Blood 401 mg/dL (70-99); Magnesium, Blood 1.8 mg/dL (1.6-2.4); Phosphorus, Blood 3.4 mg/dL (2.5-4.9); Potassium, Blood 3.6 mmol/L (3.5-5.5); Sodium, Blood 144 mmol/L (136-145); Total Protein, Blood 6.4 g/dL (6.4-8.2); Troponin I 0.465 ng/mL (0.000-0.040); Valproic Acid 75.6 ug/mL (50.0-100.0)
--- NOTE | 2019-07-25 06:05 | NUR ---
SHIFT SUMMARY PATIENT ACHIEVED TARGET TEMPERATIVE OF 96 DEGREES @ 01:20 THIS AM. PATIENT DID WELL THROUGH NIGHT. DID HAVE TO INCREASE LEVOPHED TO CURRENT RATE OF 15 MCG/MIN, AND PROPOFOL IS AT 40 MCG/KG/HR. DID WITNESS SOME SEIZURE ACTIVITY BREAK THROUGH SEDATION AROUND 03:50, GAVE 2MG ATIVAN, RELIEVED; SEE E-MAR. NO FURTHER ISSUES WERE NOTED. CRITICAL LABS, CONDITION DISCUSSED WITH DR. BLUNT, VENT CHANGES MADE PER REQUEST. NO OTHER ACUTE CHANGES OVERNIGHT. ASSESSMENT IS TOLERATED. VSS. WILL CONTINUE TO MONITOR.
[2019-07-25 06:55] LABS: Calcium, Ionized (POC) 1.15 mmol/L (1.10-1.46); Chloride (POC) 103 mmol/L (98-108); Creatinine (POC) 1.1 mg/dL (0.6-1.0); Glucose (ISTAT POC) 439 mg/dL (70-99); Hemoglobin (POC) 15.3 g/dL (12.0-16.0); Sodium (POC) 141 mmol/L (135-148); Total CO2 (POC) 20 mmol/L (21-32)
[2019-07-25 07:56] LABS: Adenovirus Not Detected (NOT DETECT); Coronavirus 229E Not Detected (NOT DETECT)
[2019-07-25 07:57] LABS: Bordetella pertussis Not Detected (NOT DETECT); Chlamydophila pneumoniae Not Detected (NOT DETECT); Coronavirus HKU1 Not Detected (NOT DETECT); Coronavirus NL63 Not Detected (NOT DETECT); Coronavirus OC43 Not Detected (NOT DETECT); Human Metapneumovirus Not Detected (NOT DETECT); Human Rhinovirus/Enterovirus Not Detected (NOT DETECT); Influenza A/2009-H1 Not Detected (NOT DETECT); Influenza A/H1 Not Detected (NOT DETECT); Influenza A/H3 Not Detected (NOT DETECT); Influenza B Not Detected (NOT DETECT); Mycoplasma pneumoniae Not Detected (NOT DETECT); Parainfluenza Virus 1 Not Detected (NOT DETECT); Parainfluenza Virus 2 Not Detected (NOT DETECT); Parainfluenza Virus 3 Not Detected (NOT DETECT); Parainfluenza Virus 4 Not Detected (NOT DETECT); Respiratory Syncytial Virus Not Detected (NOT DETECT)
[2019-07-25 09:29] LABS: PCO2 Arterial 33.1 mmHg (35-45); PO2 Arterial 97.6 mmHg (80-100); pH Blood Arterial 7.08 (7.35-7.45)
--- NOTE | 2019-07-25 10:55 | NUR ---
[facility] REFERRAL: AT THIS TIME, [facility] IS INTERESTED IN FOLLOWING PT FOR POTENTIAL DONATION. CALL WITH ANY CHANGES TO PLAN OF CARE OR PROGNOSIS OF PT. OTHERWISE THEY WILL CHECK BACK IN ON NOC SHIFT TONIGHT.
[2019-07-25 12:48] LABS: PCO2 Arterial 29.2 mmHg (35-45); PO2 Arterial 94.4 mmHg (80-100); pH Blood Arterial 7.11 (7.35-7.45)
--- NOTE | 2019-07-25 13:11 | NUR ---
REASSESSMENT PT REMAINS INTUBATED. SEDATION WAS OFF FROM 0850 TO 1230 FOR EEG THIS MORNING. PT REMAINED UNRESPONSIVE. PT HAD SOME SMALL TWITCHES IN HER L FOOT SEAT MAKER WAS SETTING UP AND WHEN PLACING BANDAID OVER IO SITE THAT WAS OOZING. EYES ARE IN AN UPWARD GAZE. PUPILS 2MM AND SLUGGISH. NO GAG OR COUGH WITH SUCTION. PROPOFOL RESUMED AFTER EEG COMPLETE D/T TACHYPNEA AND STACKING BREATHS. LUNGS CLEAR, CRACKLES IN THE BASES. HYPONTESIVE, RECEIVING VASOPRESSIN AND LEVOPHED. INSULIN AND BICARB GTTS STARTED THIS MORNING FOR ACIDOSIS. ABOUT 100ML OF THICK RAMOS OUTPUT FROM OG. URINE CL YELLOW. SPOKE WITH PT'S INEZ THIS MORNING AND PROVIDED UPDATE. PLAN IS FOR HER AND PTS TO COME BY THIS AFTERNOON. CONTINUING TO MONITOR.
[2019-07-25 15:15] LABS: Bun/Creatinine Ratio 16.9 (12.0-20.0); Calcium, Blood 7.9 mg/dL (8.5-10.1); Creatinine, Blood 1.3 mg/dL (0.40-1.00); Magnesium, Blood 1.9 mg/dL (1.6-2.4); Phosphorus, Blood 3.2 mg/dL (2.5-4.9); Potassium, Blood 2.9 mmol/L (3.5-5.5)
--- NOTE | 2019-07-25 16:32 | NUR ---
SHIFT SUMMARY PT REMAINS SEDATED AND INTUBATED. HER DAUGHTER AND CAME BY AND WERE UPDATED BY NURSE AND DR. BLUNT. THEY EXPRESS UNDERSTANDING ABOUT THE SEVERITY OF PT'S CONDITION, BUT THEN MAKE COMMENTS ABOUT NOT BEING ABLE TO WAIT UNTIL SHE WAKES UP SO THEY CAN TALK TO HER. PT'S OTHER DAUGHTER, MASSIMO, WHO SAID SHE IS A NURSE APPEARED TO UNDERSTAND THE SEVERITY AND STATED SHE IS ON HER WAY DOWN FROM [place] TO HELP HER FAMILY UNDERSTAND. PT CONTINUES TO HAVE NO GAG OR COUGH, PUPILS SLUGGISH. PT HAD SHORT RUN OF VTACH, LABS ORDERED AND POTASSIUM BEING REPLACED. INSULIN BEING TITRATED UP PER BLOOD SUGARS. REMAINS ON LEVOPHED FOR HYPOTENSION. 950ML OF URINE OUT. FIO2 TITRATED DOWN FROM 70 TO 40% AND PEEP FROM 10 TO 8. CONITINUING TO MONITOR.
--- NOTE | 2019-07-25 17:58 | NUR ---
PT HAS BEEN HAVING INCREASING ECTOPY. DISCUSSED WITH DR. BLUNT WHO WROTE FOR MORE POTASSIUM AND MAGNESIUM. DR. BLUNT REQUESTED POTASSIUM RATE BE INCREASED TO 20MEQ/HR. SPOKE WITH QUINTIN, PANTOGRAPH WATCHER, AND FABIOLA IN PHARMACY AND RECEIVED OK TO GIVE THROUGH CENTRAL LINE. POTASSIUM INFUSING AT INCREASED RATE AND MAGNESIUM INFUSING NOW WELL. CONTINUE TO MONITOR.
[2019-07-25 19:13] LABS: PCO2 Arterial 27.5 mmHg (35-45); PO2 Arterial 107 mmHg (80-100); pH Blood Arterial 7.15 (7.35-7.45)
--- NOTE | 2019-07-25 20:31 | NUR ---
ASSUMPTION OF CARE ASSUMED CARE OF PT @ 1900, DR STERN IN ROOM AT THIS TIME ASSESSING PT. PT INTUBATED AND SEDATED, UNRESPONSIVE TO VERBAL AND PAINFUL STIMULI WITH THIS RN, SOME GROSS MOVEMENT NOTED TO R ARM/SHOULDER. VENT SET TO AC 28/400/8/40%, PEEP DECREASED TO 5 @ APPROX 1945. MONITOR SHOWS SINUS RHYTHM WITH FREQUENT PVC'S AND OCCASSIONAL 3-4 BEAT RUNS OF VTACH, SEE RHYTHM STRIPS IN CHART. OG IN PLACE TO INTERMITTENT SUCTION, BROWN OUTPUT. NELSON IN PLACE DRAINING CLOUDY YELLOW URINE. LEVOPHED, INSULIN, PROPOFOL GTT'S CURRENTLY INFUSING, SEE FLOWSHEET FOR RATES AND TITRATIONS. BICARB INFUSING AT 50ml/hr, POTASSIUM REPLACEMENT INFUSING.
[2019-07-25 22:37] LABS: Bun/Creatinine Ratio 15.9 (12.0-20.0); Calcium, Blood 7.4 mg/dL (8.5-10.1); Creatinine, Blood 1.57 mg/dL (0.40-1.00); Potassium, Blood 3.3 mmol/L (3.5-5.5)
--- NOTE | 2019-07-26 00:55 | NUR ---
MIDSHIFT ASSESSMENT PT REMAINS SEDATED AND UNRESPONSIVE TO PAINFUL/VERBAL STIMULI, VENT SETTINGS UNCHANGED. PT TO CT @ 2215 AND BACK TO ICU @ 2229, 0 LAB RESULTS CALLED TO DR BLUNT, ORDERS FOR 40meq KCL AND AM ABG. INCREASED ECTOPY NOTED ON THE MONITOR WITH FREQUENT RUNS OF VTACH, SELF LIMITING. CHEM BG'S TRENDING UP, INSULIN GTT TITRATED TO 18u/hr.
--- NOTE | 2019-07-26 01:31 | NUR ---
TTM PT TTM x24hrs, TITRATED TTM TO 97.0 DEGREES AT THIS TIME.
[2019-07-26 03:47] LABS: Vancomycin, Trough 23.6 ug/mL (5.0-10.0)
[2019-07-26 04:17] LABS: BASOPHILS ABSOLUTE AUTO 0.03 K/mm3 (0.00-0.23); BASOPHILS PERCENT AUTO 0 % (0-2); EOSINOPHILS PERCENT AUTO 0 % (0-6); Hematocrit 34.8 % (33.0-51.0); Hemoglobin 11.2 g/dL (11.5-16.0); IMMATURE GRAN ABSOLUTE AUTO 0.07 K/mm3 (0.00-0.10); IMMATURE GRAN PERCENT AUTO 0 % (0-1); LYMPHOCYTES PERCENT AUTO 10 % (21-46); MONOCYTES ABSOLUTE AUTO 0.76 K/mm3 (0.16-1.47); MONOCYTES PERCENT AUTO 4 % (4-13); Mean Corpuscular HGB 30.2 pg (26.0-34.0); Mean Corpuscular HGB Conc 32.2 g/dL (31.5-36.5); Mean Platelet Volume 10.8 fL (9.1-12.4); NEUTROPHILS ABSOLUTE AUTO 15.34 K/mm3 (1.96-9.15); NEUTROPHILS PERCENT AUTO 86 % (41-73); Platelet Count 216 K/mm3 (150-400); RDW Coefficient Variation 13.2 % (11.7-14.2); RDW Standard Deviation 45.4 fL (35.1-46.3); Red Blood Cell Count 3.71 M/mm3 (3.80-5.20)
[2019-07-26 04:22] LABS: Mean Corpuscular Volume 94 fL (80-100)
[2019-07-26 04:32] LABS: International Normalized Ratio 1.06; Prothrombin Time Results 11.3 Sec (9.7-11.5)
[2019-07-26 04:40] LABS: Albumin, Blood 2.1 g/dL (3.4-5.0); Albumin/Globulin Ratio 0.6 (0.8-1.8); Bilirubin, Total 0.5 mg/dL (0.1-1.0); Bun/Creatinine Ratio 20.6 (12.0-20.0); Calcium, Blood 7.1 mg/dL (8.5-10.1); Creatinine, Blood 1.31 mg/dL (0.40-1.00); Globulin, Blood 3.6 g/dL (2.2-4.0); Magnesium, Blood 1.8 mg/dL (1.6-2.4); Phosphorus, Blood 1.5 mg/dL (2.5-4.9); Potassium, Blood 3.3 mmol/L (3.5-5.5); Total Protein, Blood 5.7 g/dL (6.4-8.2)
[2019-07-26 04:51] LABS: Troponin I 0.5 ng/mL (0.000-0.040)
[2019-07-26 04:56] LABS: PCO2 Arterial 28.9 mmHg (35-45); PO2 Arterial 69.9 mmHg (80-100); pH Blood Arterial 7.38 (7.35-7.45)
--- NOTE | 2019-07-26 05:31 | NUR ---
TTM TARGET TEMPERATURE INCREASED TO 98.0 DEGREES.
--- NOTE | 2019-07-26 07:30 | NUR ---
ASSUMED CARE BEDSIDE REPORT RECIEVED. PT IS INTUBATED AND SEDATED. VENT SETTINGS AC 28, TV 400, PEEP 5, FIO2 40%. PT IS NON RESPONSIVE TO ANY NOXIOUS STIMULI. NO GAG OR COUGH NOTED. OGT IN PLACE TO LIS WITH DARK BROWN OUTPUT NOTED. COOLING CATH LINE TO RIGHT FEMORAL C/D/I. TARGET TEMP SET TO 98.0 AT THIS TIME. PROPOFOL INFUSING AT 40 MCG/KG/MIN, LEVOPHED 10 MCG/MIN, INSULIN GTT 18 UNITS/HR, BICARB 30 ML/HR, AND NS TKO. VITAL SIGNS STABLE. HR 90-100'S WITH FREQUENT ECTOPY NOTED. NELSON TEMP PROBE IN PLACE WITH YELLOW URINE OUTPUT NOTED. RECTAL TEMP PROBE IN PLACE. WILL CONTINUE TO MONITOR.
--- NOTE | 2019-07-26 09:56 | NUR ---
DR RODRÍGUEZ IN PROPOFOL ON STANDBY. DR RODRÍGUEZ IN TO SEE PT. PT WITH NO RESPONSE TO NOXIOUS STIMULI OR REFLEXES PRESENT AT TIME OF EVALUATION. PLAN TO KEEP ALL SEDATION OFF AT THIS TIME. WILL CONTINUE TO MONITOR.
[2019-07-26 13:35] LABS: Stool Occult Blood Guaiac 1 Pos (Neg)
[2019-07-26 16:06] LABS: International Normalized Ratio 1.05; Prothrombin Time Results 11.2 Sec (9.7-11.5)
[2019-07-26 17:01] LABS: Vancomycin, Random 14.2 ug/mL
--- NOTE | 2019-07-26 18:27 | NUR ---
SHIFT SUMMARY NO ACUTE CHANGES THIS SHIFT. PT HAS REMAINED INTUBATED WITH VENT SETTINGS AC 20, TV 400, PEEP 5, FIO2 40%. PT RR HAS REMAINED 24-30'S. PT NOT SEDATED. PT WITH NO CHANGES TO NEURO STATUS SINCE THIS AM. NO GAG, COUGH, OR RESPONSE TO NOXIOUS STIMULI NOTED. OGT REMAINS IN PLACE TO LIS WITH DARK BROWN OUTPUT. COOLING CATH REMAINS IN PLACE WITH TEMPERATURE SET TO 98.0. NS INFUSING TKO. PT WEANED OFF INSULIN GTT AND LEVOPHED THROUGHOUT THE SHIFT. VITAL SIGNS HAVE REMAINED STABLE. NELSON REMAINS IN PLACE WITH GOOD AMOUNT OF YELLOW URINE OUTPUT NOTED. RECTAL TEMP PROBE REMAINS IN PLACE. PT DAUGHTERS MASSIMO AND ANDI VISITED AT BEDSIDE TODAY AND UPDATED TO PT CONDITION AND PLAN OF CARE. WILL CONTINUE TO MONITOR AND REPORT OFF TO ONCOMING RN.
--- NOTE | 2019-07-26 21:00 | NUR ---
ASSUMPTION OF CARE ASSUMED CARE OF PT @ 1900, PT INTUBATED AND OFF SEDATION, VENT SET TO AC 20/400/5/40%, PT WITHDRAWS FROM PAINFUL STIMULI, NO GAG OR COUGH RELFEX, PUPILS UNEQUAL. MONITOR SHOWS SINUS RHYTHM WITH BBB, HR 115-119, LEVOPHED RESTARTED THIS SHIFT TO MAINTAIN MAPS>65. COOLING CATHETER IN PLACE, INFUSING THROUGH R GROIN CENTRAL LINE, TEMP SET @ 98.[address]ES[address] AND DRAINING CLEAR YELLOW URINE. OG TO LOW INT SUCTION, DARK BROWN OUTPUT, GUAIAC RESULTS POSITIVE, UPDATED DR RODRÍGUEZ ORDERS TO INCREASE PROTONIX TO BID. DR STERN TO ROOM TO ASSESS PT AND OFFERED TO MEET WITH FAMILY TO DISCUSS PROGNOSIS AND PLAN OF CARE. SPOKE WITH PTS DAUGHTER MASSIMO AND SET UP FAMILY MEETING FOR PTS TWO DAUGHTERS AND SPOUSE, PLAN FOR FAMILY TO COME IN 07/26 @ [address] STERN.
--- NOTE | 2019-07-27 02:30 | NUR ---
COOLING CATHETER PLACED ON STANDBY AND DISCONNECTED FROM PT AT THIS TIME.
[2019-07-27 04:30] LABS: BASOPHILS ABSOLUTE AUTO 0.02 K/mm3 (0.00-0.23); BASOPHILS PERCENT AUTO 0 % (0-2); EOSINOPHILS PERCENT AUTO 0 % (0-6); Hematocrit 31.8 % (33.0-51.0); Hemoglobin 10.4 g/dL (11.5-16.0); IMMATURE GRAN ABSOLUTE AUTO 0.09 K/mm3 (0.00-0.10); IMMATURE GRAN PERCENT AUTO 1 % (0-1); LYMPHOCYTES ABSOLUTE AUTO 0.86 K/mm3 (0.84-5.20); LYMPHOCYTES PERCENT AUTO 7 % (21-46); MONOCYTES ABSOLUTE AUTO 0.57 K/mm3 (0.16-1.47); MONOCYTES PERCENT AUTO 5 % (4-13); Mean Corpuscular HGB 30.5 pg (26.0-34.0); Mean Corpuscular HGB Conc 32.7 g/dL (31.5-36.5); Mean Corpuscular Volume 93 fL (80-100); Mean Platelet Volume 10.7 fL (9.1-12.4); NEUTROPHILS ABSOLUTE AUTO 10.77 K/mm3 (1.96-9.15); NEUTROPHILS PERCENT AUTO 88 % (41-73); Platelet Count 147 K/mm3 (150-400); RDW Coefficient Variation 13.8 % (11.7-14.2); RDW Standard Deviation 46.8 fL (35.1-46.3); Red Blood Cell Count 3.41 M/mm3 (3.80-5.20); White Blood Cell Count 12.31 K/mm3 (4.00-11.30)
[2019-07-27 04:49] LABS: Albumin, Blood 2.1 g/dL (3.4-5.0); Albumin/Globulin Ratio 0.5 (0.8-1.8); Bilirubin, Total 0.6 mg/dL (0.1-1.0); Bun/Creatinine Ratio 32.1 (12.0-20.0); Calcium, Blood 7.3 mg/dL (8.5-10.1); Creatinine, Blood 1.06 mg/dL (0.40-1.00); Magnesium, Blood 1.9 mg/dL (1.6-2.4); Potassium, Blood 3.9 mmol/L (3.5-5.5); Total Protein, Blood 6.1 g/dL (6.4-8.2)
[2019-07-27 04:58] LABS: PCO2 Arterial 33.9 mmHg (35-45); PO2 Arterial 66.3 mmHg (80-100); pH Blood Arterial 7.43 (7.35-7.45)
--- NOTE | 2019-07-27 07:02 | NUR ---
SHIFT SUMMARY NO ACUTE CHANGES THIS SHIFT, PT REMAINS INTUBATED AND SEDATED, SOME GROSS MOVEMENT NOTED TO EXTREMETIES, THEY DO NOT APPEAR TO BE PURPOSEFUL. MONITOR SHOWS SINUS RHYTHM, VERY LITTLE ECTOPY NOTED, HR 100-120, LEVO RESTARTED THIS SHIFT FOR SHORT PERIOD, CURRENTLY ON SB. COOLING CATHETER PLACED ON SB THIS SHIFT. OG IN PLACE WITH DARK BROWN DRAINAGE, NELSON IN PLACE WITH GOOD OUTPUT. REPORT TO ALEJANDRO HERNÁNDEZ, PLAN FOR FAMILY TO VISIT TODAY AND SPEAK WITH DR STERN.
--- NOTE | 2019-07-27 08:05 | NUR ---
ASSUMED CARE BEDSIDE REPORT RECIEVED. PT IS INTUBATED AND NOT SEDATED. VENT SETTINGS AC 20, TV 400, PEEP 5, FIO2 35%. PT WITH THICK YELLOW ETT SECRETIONS WITH SUCTION. NO COUGH NOTED WITH SUCTION. MINIMAL GAG REFLEX NOTED WITH DEEP ORAL SUCTION. PT WITH DOLLS EYES AND NO CORNEAL REFLEX. PT INTERNALLY ROTATES AND WITHDRAWS BILAT LOWER EXTREMITIES TO NOXIOUS STIMULI. NO MOVEMENT OF UPPER EXTREMITIES NOTED. OGT IN PLACE TO LIS WITH MINIMAL AMOUNT OF DARK BROWN OUTPUT NOTED. NELSON IN PLACE WITH YELLOW OUTPUT NOTED. RECTAL TEMP PROBE IN PLACE. COOLING CATH CENTRAL LINE IN PLACE TO RIGHT FEMORAL WITH NS INFUSING TKO. VITAL SIGNS STABLE. WILL CONTINUE TO MONITOR.
[2019-07-27 12:50] LABS: Vancomycin, Random 15.5 ug/mL
--- NOTE | 2019-07-27 14:37 | NUR ---
FAMILY VISIT PT DAUGHTERS MASSIMO AND ANDI AT BEDSIDE AT THIS TIME. PROVIDED UPDATE. AWAITING DR STERN FOR DISCUSSION OF PLAN OF CARE.
--- NOTE | 2019-07-27 18:33 | NUR ---
SHIFT SUMMARY NO ACUTE CHANGES THIS SHIFT. PT REMAINS INTUBATED AND NOT SEDATED. PT WITH NO CHANGES TO NEUROLOGICAL ASSESSMENT SINCE START OF SHIFT. VENT SETTINGS AC 16, TV 400, PEEP 5, FIO2 35%. PT WITH THICK YELLOW SECRETIONS WITH ETT SUCTION. OGT REMAINS IN PLACE TO LIS WITH DARK BROWN OUTPUT NOTED. NELSON REMAINS IN PLACE WITH YELLOW URINE OUTPUT NOTED. COOLING CATH CENTRAL LINE TO RIGHT GROIN REMAINS C/D/I WITH NS INFUSING TKO. DR STERN HAS COME TO SEE PT AND DISCUSS PROGNOSIS WITH DAUGHTERS AND PT SPOUSE. PT DAUGHTERS STATED THEY WOULD LIKE MORE TIME TO DISCUSS POSSIBILITY OF MAKING PT DNR WITH OTHER FAMILY MEMBERS. PT REMAINS FULL CODE AT THIS TIME. VITAL SIGNS HAVE REMAINED STABLE. WILL CONTINUE TO MONITOR AND REPORT OFF TO ONCOMING RN.
--- NOTE | 2019-07-27 19:43 | NUR ---
ASSUMPTION OF CARE PT REMAINS INTUBATED AND OFF SEDATION, MINIMAL RESPONSES TO PAINFUL STIMULI, POSSIBLE COUGH REFLEX WITH ET SUCTIONING, SOME GROSS MOVEMENTS NOTED. PUPILS ARE UNEQUAL, NON REACTIVE TO LIGHT. VENT SET TO AC 16/400/5/35%, MONITOR SHOWS SINUS RHYTHM WITH BBB, HR 110-120, HTN NOTED WITH SBP 150'S-160'S, LOW GRADE FEVER @ 100.9. OG REMAINS IN PLACE WITH DARK BROWN OUTPUT. NELSON IN PLACE. CL TO R VANNA, IN TACT.
--- NOTE | 2019-07-28 00:10 | NUR ---
MIDSHIFT ASSESSMENT NOT ACUTE CHANGES THIS SHIFT, PT REMAINS HYPERTENSIVE, DISCUSSED WITH DR RODRÍGUEZ, ORDER FOR 20-40MG LABETOLOL Q4H PRN FOR SBP>160.
--- NOTE | 2019-07-28 07:17 | NUR ---
SHIFT SUMMARY NO ACUTE CHANGES THIS SHIFT, PT REMAINS INTUBATED AND OFF SEDATION, L ARM NOTED TO HAVE DECEREBATE POSTURING WITH PAINFUL STIMULI. INCREASING HYPERTENSION THIS SHIFT, 20MG LABETOLOL x2 ADMINISTERED AND ADEQUATE FOR BP CONTROL. PT CONTINUES TO HAVE DARK BROWN DRAINAGE FROM OG, 1 BM THIS SHIFT. NELSON IN PACE WITH GOOD OUTPUT. REPORT GIVEN TO ALEJANDRO HERNÁNDEZ.
--- NOTE | 2019-07-28 07:30 | NUR ---
ASSUMED CARE BEDSIDE REPORT RECIEVED. PT IS INTUBATED AND NOT SEDATED. VENT SETTINGS AC 16, TV 400, PEEP 5, FIO2 35%. PT WITH MODERATE AMOUNT OF THICK YELLOW ETT SECRETIONS WITH SUCTION. PT IS UNRESPONSIVE. PT WITHOUT GAG OR COUGH REFLEX. PT WITH MINIMAL WITHDRAWAL AND INTERNAL ROTATION OF EXTREMITIES TO NOXIOUS STIMULI. PT WITH NO CORNEAL REFLEX. PUPILS UNEQUAL. VITAL SIGNS HAVE REMAINED STABLE. OGT IN PLACE TO LIS WITH MINIMAL AMOUNT OF DARK BROWN OUTPUT NOTED. COOLING CATH CENTRAL LINE TO RIGHT FEMORAL IS C/D/I WITH NS INFUSING TKO. NELSON IN PLACE WITH YELLOW URINE OUTPUT NOTED. WILL CONTINUE TO MONITOR.
--- NOTE | 2019-07-28 18:01 | NUR ---
SHIFT SUMMARY NO ACUTE CHANGES THIS SHIFT. PT HAS REMAINED INTUBATED WITH VENT SETTINGS AC 16, TV 400, PEEP 5, FIO2 30%. PT NOT SEDATED AND UNRESPONSIVE. NEURO RESPONSES UNCHANGED THROUGHOUT THE DAY. PT CONTINUES TO WITHDRAW AND INTERNALLY ROTATE EXTREMITIES TO NOXIOUS STIMULI. NO GAG OR COUGH NOTED. VITAL SIGNS HAVE REMAINED STABLE. PT HYPERTENSIVE WITH SBP 140-180'S. OGT REMAINS IN PLACE TO LIS WITH MINIMAL DARK BROWN OUTPUT. NELSON REMAINS IN PLACE WITH YELLOW URINE OUTPUT WITH SEDIMENT NOTED. RIGHT FEMORAL COOLING CENTRAL LINE REMAINS IN PLACE WITH NS INFUSING TKO. POWERGLIDE TO MARY C/D/I. PT FAMILY ATTEMPTED TO SEE PT TODAY. SOSA, CORE ANALYST DISCUSSED VISITING LIMITATIONS WITH FAMILY VIA PHONE. PLAN FOR FAMILY TO COME IN AT 1030 TOMORROW FOR MEETING WITH DR RODRÍGUEZ TO DISCUSS GOALS OF CARE. WILL CONTINUE TO MONITOR AND REPORT OFF TO ONCOMING RN.
--- NOTE | 2019-07-28 23:35 | NUR ---
ASSUMPTION OF CARE ASSUMED CARE OF PT @ 1900, PT INTUBATED AND OFF SEDATION, PUPILES UNEQUAL AND NOT REACTIVE TO LIGHT, BUE WITHDRAWS FROM PAINFUL STIMULI. MONITOR SHOWS SINUS RHYTHM WITH HR 100-110, HYPERTENSION WITH SBP 170'S. AT APPROX 2000, HR INCREASED TO 170'S-180'S, SBP 180'S, 20MG IV LABETALOL ADMINISTERED, HR DECREASED TO 120'S-130'S, PRN EKG COMPLETED, RESULTS SHOWED AFIB. DR RODRÍGUEZ CALLED AND UPDATED, CARDIZEM BOLUS AND GTT ORDERED. PTS TEMPERATURE INCREASING TO 101.7, ICEPACKS APPLIED. RESPIRATORY PATTERN CHANGE NOTED, GUERO SHELDON LIKE PATTERN, INCREASED POSTURING NOTED TO R ARM, NOTIFIED DR RODRÍGUEZ, STAT CT ORDERED. PT TO CT @ 2145, RESULTS REPORTED FROM [facility] TO DR RODRÍGUEZ @ 2215. DONOR LINE UPDATED ON PTS STATUS, CALL PLACED TO FAMILY. FAMILY TO PTS ROOM @ 2300, FAMILY REQUESTS SPIRITAL CARE. NURSING ELECTRICAL PROSPECTING OBSERVER NOTIFIED. FAMILY REPORTS TO THIS RN THEY NEED TIME TO MAKE FURTHER DECISIONS ON PLAN OF CARE.
--- NOTE | 2019-07-28 23:49 | NUR ---
RAVEN FROM SPIRITAL CARE TO ROOM.
--- NOTE | 2019-07-29 00:01 | NUR ---
Pastoral care visit conducted. Family were at bedside, appropriately tearful and reminiscing. Consolatory prayer was requested by family which was offered congruently. Empathic presence and conducive reading extended in conjunction. I will remain available for further PC involvement.
--- NOTE | 2019-07-29 00:18 | NUR ---
TO PTS ROOM FOR MIDNIGHT ASSESSMENTS/MEDICATIONS, FAMILY REQUESTS A FEW MORE MINUTES WITH PT. DAUGHTERS ANDI ORTIZ AND MASSIMO AND ZACHARY AT BEDSIDE.
--- NOTE | 2019-07-29 00:52 | NUR ---
FAMILY MADE THE DECISION TO WITHDRAW CARE, DR RODRÍGUEZ NOTIFIED, PT MADE COMFORT CARE. PT EXTUBATED @ 0050, AND DAUGHTERS AT BEDSIDE.
--- NOTE | 2019-07-29 00:55 | NUR ---
TIME OF 52, VERIFIED BY ABSENCE OF APICAL PULSE.
--- NOTE | 2019-07-29 02:00 | NUR ---
FAMILY LEFT BEDSIDE, DAUGHTER ANDI COLLECTED BELONGINGS OF CROSS NECKLACE.
--- NOTE | 2019-07-29 03:26 | NUR ---
SHA CHRISTENSEN WITH [facility] ARRIVED @ 2746
== END 2019-07-29 03:26 | DRG 870 ==
LOC: ER 22:15 → ICUE 22:45 → ICUW 22:45 → ICUE 23:50
PROVIDERS: Emergency Medicine; Internal Medicine; Internal Medicine Critical Care Medicine; Pharmacist; ADMIT Family Medicine
PROC: 8E0ZXY6 Isolation (ICD-10-PCS; 2019-07-24)
PROC: 5A1955Z Respiratory Ventilation, Greater than 96 Consecutive Hours (ICD-10-PCS; 2019-07-24)
PROC: 06HM33Z Insertion of Infusion Device into Right Femoral Vein, Percutaneous Approach (ICD-10-PCS; principal; 2019-07-25)
PROC: 3E033XZ Introduction of Vasopressor into Peripheral Vein, Percutaneous Approach (ICD-10-PCS; 2019-07-25)
DX: A41.9 Sepsis, unspecified organism (principal); J96.01 Acute respiratory failure with hypoxia; G92 Toxic encephalopathy; R65.21 Severe sepsis with septic shock; R40.20 Unspecified coma; J69.0 Pneumonitis due to inhalation of food and vomit; I42.0 Dilated cardiomyopathy; E87.4 Mixed disorder of acid-base balance; G93.1 Anoxic brain damage, not elsewhere classified; P91.60 Hypoxic ischemic encephalopathy [HIE], unspecified; I46.9 Cardiac arrest, cause unspecified; Z51.5 Encounter for palliative care; F17.210 Nicotine dependence, cigarettes, uncomplicated; Z79.4 Long term (current) use of insulin; E87.6 Hypokalemia; K21.9 Gastro-esophageal reflux disease without esophagitis; E66.9 Obesity, unspecified; E11.65 Type 2 diabetes mellitus with hyperglycemia; Z20.828 Contact with and (suspected) exposure to other viral communicable diseases; B19.20 Unspecified viral hepatitis C without hepatic coma; R56.9 Unspecified convulsions
CPT/HCPCS: 0099U; 31720; 36415; 36556; 36600; 51702; 70450; 71045; 71260; 80047; 80048; 80053; 80164; 80202; 82272; 82330; 82803; 82947; 83605; 83735; 83880; 84100; 84132; 84484; 85014; 85025; 85379; 85384; 85610; 86316; 87040; 87070; 87205; 92950; 93005; 93010; 94002; 94003; 94640; 95819; 96374-59; 96375; 96375-59; 99285-25; C1751; C8929; C9113; J0282; J0610; J1644; J1815; J2060; J2250; J2543; J2704; J3010; J3370; J3475; J3480; J7030; J7040; J7050; J7060; J7070; Q9957; Q9967; U0002